=== PATIENT | male | born 1985 | race Caucasian/White ===

== ENCOUNTER 2023-06-28 03:55 | Emergency (ER) | payer OTHER ==
[~2023-06-28] VITALS: Ht 170.2 cm; Wt 99.8 kg
[2023-06-28 04:08] VITALS: BP 127/73; PULSE 103; RESP 14; TEMP 98.1; O2SAT 100
[2023-06-28 04:27] VITALS: BP 127/73; PULSE 103; RESP 14; TEMP 98.1; O2SAT 100
== END 2023-06-28 04:27 ==
LOC: MED 03:55
DX: Z02.89 Encounter for other administrative examinations (principal); I10 Essential (primary) hypertension; F41.9 Anxiety disorder, unspecified; F32.9 Major depressive disorder, single episode, unspecified; V89.2XXA Person injured in unspecified motor-vehicle accident, traffic, initial encounter; Y93.89 Activity, other specified; Y92.410 Unspecified street and highway as the place of occurrence of the external cause; Y99.8 Other external cause status
CPT/HCPCS: 99283